=== PATIENT | male | born 1990 ===

== ENCOUNTER 2018-08-27 11:39 | Emergency (ER) | payer OTHER ==
--- NOTE | 2018-08-27 11:49 | ER Report ---
History and Physical Time Seen By MD: 11:49 HPI/ROS CHIEF COMPLAINT: Left flank pain HISTORY OF PRESENT ILLNESS: 27 are old male patient percent emergency room with complaint of left leg pain. Patient states he rates it a 9 out of 10. Patient s tates that he has a history of kidney stones. He states that he has had surgery for then placed. He states his urologist is in [place]. 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 Patient denies any fevers or chills. States he's been eating and drinking without any difficulties. Patient states pain is significant. He has not taken any medication for. REVIEW OF SYSTEMS: Respiratory: No cough, no dyspnea. Cardiovascular: No chest pain, no palpitations. Gastrointestinal: As noted above Musculoskeletal: No back pain. Allergies: Coded Allergies: No Known Drug Allergies (Unverified , 08/27/18) Home Meds No Active Prescriptions or Reported Meds Past Medical/Surgical History Patient has a past medical history of kidney stones. Patient has a surgical history of lithotripsy for kidney stones. Reviewed Nurses Notes: Yes Constitutional Vital Sign - Last 24 Hours 08/27/18 11:50 Temp 97.6 Pulse 82 Resp 16 B/P (MAP) 133/93 Pulse Ox 92 O2 Delivery Room Air Physical Exam General Appearance: The patient is alert, has no immediate need for airway protection and no current signs of toxicity. Respiratory: Chest is non tender, lungs are clear to auscultation. Cardiac: regular rate and rhythm Gastrointestinal: Abdomen is soft and non tender, no masses, bowel sounds normal. Musculoskeletal: Neck: Neck is supple and non tender. Extremities have full range of motion and are non tender. Skin: No rashes or lesions. DIFFERENTIAL DIAGNOSIS: After history and physical exam differential diagnosis was considered for flank pain including but not limited to musculoskeletal causes, kidney stone, pyelonephritis, shingles, and intra-abdominal causes such as diverticulitis and appendicitis. Medical Decision Making Data Points Result Diagram: 08/27/18 1148 08/27/18 1148 Laboratory Hematology Test 08/27/18 11:48 Red Blood Count 5.42 M/uL (4.00-5.60) Mean Corpuscular Volume 89.9 fL (80.0-96.0) Mean Corpuscular Hemoglobin 29.6 pg (26.0-33.0) Mean Corpuscular Hemoglobin Concent 32.9 g/dL (32.0-36.0) Red Cell Distribution Width 12.3 % (11.5-14.5) Mean Platelet Volume 8.7 fL (7.2-11.1) Neutrophils (%) (Auto) 41.4 % (39.4-72.5) Lymphocytes (%) (Auto) 46.8 % (17.6-49.6) Monocytes (%) (Auto) 7.6 % (4.1-12.4) Eosinophils (%) (Auto) 3.9 % (0.4-6.7) Basophils (%) (Auto) 0.3 % (0.3-1.4) Nucleated RBC Relative Count (auto) 0.1 /100WBC Neutrophils # (Auto) 3.9 K/uL (2.0-7.4) Lymphocytes # (Auto) 4.4 K/uL (1.3-3.6) Monocytes # (Auto) 0.7 K/uL (0.3-1.0) Eosinophils # (Auto) 0.4 K/uL (0.0-0.5) Basophils # (Auto) 0.0 K/uL (0.0-0.1) Nucleated RBC Absolute Count (auto) 0.01 K/uL Erythrocyte Sedimentation Rate 1 mm/HOUR (0-15) Sodium Level 141 mmol/L (137-145) Potassium Level 3.7 mmol/L (3.5-5.0) Chloride Level 103 mmol/L (98-107) Carbon Dioxide Level 28 mmol/L (22-30) Blood Urea Nitrogen 15 mg/dl (9-21) Creatinine 0.90 mg/dl (0.66-1.25) Glomerular Filtration Rate Calc > 60.0 Random Glucose 97 mg/dl (75-110) Calcium Level 9.8 mg/dl (8.4-10.2) Total Bilirubin 0.7 mg/dl (0.2-1.3) Aspartate Amino Transf (AST/SGOT) 46 U/L (0-35) Alanine Aminotransferase (ALT/SGPT) 46 U/L (0-56) Alkaline Phosphatase 61 U/L (0-126) C-Reactive Protein < 0.5 mg/dl (<1.0) Total Protein 8.3 g/dl (6.3-8.2) Albumin 4.6 g/dl (3.5-5.0) Chemistry Test 08/27/18 11:48 White Blood Count 9.5 k/uL (4.5-11.0) Red Blood Count 5.42 M/uL (4.00-5.60) Hemoglobin 16.0 g/dL (14.0-18.0) Hematocrit 48.7 % (42.0-52.0) Mean Corpuscular Volume 89.9 fL (80.0-96.0) Mean Corpuscular Hemoglobin 29.6 pg (26.0-33.0) Mean Corpuscular Hemoglobin Concent 32.9 g/dL (32.0-36.0) Red Cell Distribution Width 12.3 % (11.5-14.5) Platelet Count 268 K/uL (150-450) Mean Platelet Volume 8.7 fL (7.2-11.1) Neutrophils (%) (Auto) 41.4 % (39.4-72.5) Lymphocytes (%) (Auto) 46.8 % (17.6-49.6) Monocytes (%) (Auto) 7.6 % (4.1-12.4) Eosinophils (%) (Auto) 3.9 % (0.4-6.7) Basophils (%) (Auto) 0.3 % (0.3-1.4) Nucleated RBC Relative Count (auto) 0.1 /100WBC Neutrophils # (Auto) 3.9 K/uL (2.0-7.4) Lymphocytes # (Auto) 4.4 K/uL (1.3-3.6) Monocytes # (Auto) 0.7 K/uL (0.3-1.0) Eosinophils # (Auto) 0.4 K/uL (0.0-0.5) Basophils # (Auto) 0.0 K/uL (0.0-0.1) Nucleated RBC Absolute Count (auto) 0.01 K/uL Erythrocyte Sedimentation Rate 1 mm/HOUR (0-15) Glomerular Filtration Rate Calc > 60.0 Calcium Level 9.8 mg/dl (8.4-10.2) Total Bilirubin 0.7 mg/dl (0.2-1.3) Aspartate Amino Transf (AST/SGOT) 46 U/L (0-35) Alanine Aminotransferase (ALT/SGPT) 46 U/L (0-56) Alkaline Phosphatase 61 U/L (0-126) C-Reactive Protein < 0.5 mg/dl (<1.0) Total Protein 8.3 g/dl (6.3-8.2) Albumin 4.6 g/dl (3.5-5.0) ED Course/Re-evaluation ED Course Patient was admitted and examined, history and physical were obtained. Differential diagnoses were considered. On examination patient looks uncomfortable, lungs are clear, heart is regular. Patient had no tenderness to the abdomen. I discussed with him getting a urinalysis, CBC, CMP and a CT scan of the abdomen and pelvis. IV was started and patient did receive a dose of Toradol 15 mg. He is also given a liter normal saline. When they went in to get him for CT the patient refused. Patient states he feels significant better would like to go home at this time. I discussed with him that I was concerned about not knowing where the stone is were the size of the stone and I encouraged him to staying CT scan done. Patient states that he knows "when I am going need surgery". With the patient refusing I did go ahead and have patient sign out AGAINST MEDICAL ADVICE. I do have some concerns that this could be a drug seeking behavior, as he did initially request something for pain from the nurse, prior to me leaving the room he requested something for pain for me. He also asked me when he was going to be for receive something for pain. Shortly after he received medication his pain was significantly improved and he felt good enough to go home. Patient is return if condition worsens. Decision to Disposition Date: Aug 27, 2018 Decision to Disposition Time: 12:33 Depart Departure Latest Vital Signs Vital Signs Date Time Temp Pulse Resp B/P (MAP) Pulse Ox O2 Delivery O2 Flow Rate FiO2 08/27/18 11:50 97.6 82 16 133/93 92 Room Air Impression: Primary Impression: Flank pain Condition: Improved Disposition: AGAINST MED ADV / DISCONT CARE New Scripts No Active Prescriptions or Reported Meds WILDA MOSQUERA Aug 27, 2018 11:49
[2018-08-27 11:50] VITALS: BP 133/93
[2018-08-27] MEDS ORDERED: NS(*) 0.9% 1000 ML BAG 1,000 ML IV ONE (11:55)
[2018-08-27] MEDS ORDERED: ONDANSETRON 4 MG/2 ML VIAL IVP ONE (11:55)
[2018-08-27] MEDS ORDERED: KETOROLAC 15 MG/ML VIAL IVP ONE (11:55)
[2018-08-27 12:14] LABS: PLATELET COUNT, AUTOMATED 268 K/uL (150-450)
== END 2018-08-27 12:45 | disposition left against medical advice (07) ==
LOC: ER 11:43
DX: R10.9 Unspecified abdominal pain (principal)
CPT/HCPCS: 85025; 85651; 86140; 96360; 99283; J7030; 82040; 82247; 82310; 82374; 82435; 82565; 82947; 84075; 84132; 84155; 84295; 84450; 84460; 84520